=== PATIENT | male | born 1960 | race Caucasian/White ===

== ENCOUNTER 2017-02-13 23:03 | Emergency (ER) | payer SELFPAY ==
[~2017-02-13] VITALS: Ht 167.6 cm; Wt 86.1 kg
[2017-02-13 23:14] VITALS: Ht 167.6 cm; Wt 86.1 kg
--- NOTE | 2017-02-14 01:16 | ERD ---
ER Documentation Chief Complaint Chief Complaint BIBA ; R foot pain HPI The patient is a 56-year-old male, presenting to the ER because of right foot pain because he has been walking and running for 4 days after being chased by the police. He fell, denies headache, neck pain, chest pain, abdominal pain, vomiting, dysuria, diarrhea. He smokes, denies drinking, denies illicit drug Past Medical history: Diabetes mellitus, hypertension, schizophrenia Past surgical history: None ROS All systems reviewed and are negative except as per history of present illness. Medications Home Meds Active Scripts Ibuprofen* (Motrin*) 600 Mg Tab, 600 MG PO Q6, #20 TAB Prov:LAN IQBAL MD 02/14/17 Clindamycin Hcl* (Clindamycin Hcl*) 300 Mg Capsule, 300 MG PO Q6, #40 CAP Prov:LAN IQBAL MD 02/14/17 Physical Exam Vitals Vital Signs Date Time Temp Pulse Resp B/P Pulse Ox O2 Delivery O2 Flow Rate FiO2 02/14/17 01:33 98.1 81 20 126/70 96 Room Air 02/13/17 23:14 98.1 82 20 126/70 96 Physical Exam Const: No acute distress. Head: Atraumatic. Eyes: Normal Conjunctiva. ENT: Normal External Ears, Nose and Mouth. Neck: Full range of motion. No meningismus. Resp: Clear to auscultation bilaterally. Cardio: Regular rate and rhythm. Abd: Soft, non distended, normal bowel sounds, non tender. Skin: No petechiae or rashes. Back: No midline or flank tenderness. Ext: Right plantar forefoot with ruptured blister, mild tenderness at the first rt metatarsophalangeal joint Neur: Awake and alert. No focal deficit Psych: Normal Mood and Affect. Results 24 hrs Laboratory Tests Test 02/14/17 01:39 Bedside Glucose 213mg/dL Current Medications Medications (Trade) Dose Ordered Sig/Elisabeth Route PRN Reason Start Time Stop Time Status Last Admin Dose Admin Clindamycin HCl (Cleocin) 300 mg ONCE ONCE PO 02/14/17 03:30 02/14/17 03:31 Ibuprofen (Motrin) 600 mg ONCE ONCE PO 02/14/17 03:30 02/14/17 03:31 Procedures/[place] [id number] Radiology Main Line: [phone] DIAGNOSTIC IMAGING REPORT Patient: SUNNY WAYNE : 1960 Age: 56 Sex: M MR #: [id number] DOS: 02/14/17 0023 Ordering MD: SINA AGUILAR PA-C Location: E/R Room/Bed: PROCEDURE: XR Foot. CLINICAL INDICATION: Pain. TECHNIQUE: Three views of the right foot. COMPARISON: None available. FINDINGS: No fracture or dislocation is identified. Mild hallux valgus is noted. 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 There is a dorsal calcaneal enthesophyte. There is no significant soft tissue swelling. IMPRESSION: 1. No fracture or dislocation of the right foot. 2. Mild hallux valgus. 3. 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 RPTAT: HTAR .John Nagy MD, MD Date Time Electronically viewed and signed by .John Nagy MD, on 02/14/2017 02:04 .R/ CC: SINA AGUILAR PA-C MEDICAL MAKING DECISION: Descending is a 56-year-old male, presenting with acute right foot cellulitis. He was treated with clindamycin and Motrin The differential diagnoses considered include but are not limited to, cellulitis , abscess, foreign body, fracture, sprain, contusion Departure Diagnosis: Primary Impression: Cellulitis of right foot Condition: Good Comments He was discharged with Motrin and clindamycin I discussed the findings with the patient. I advised the patient to follow-up with the primary physician in about 1-2 days, sooner if needed and return if any concern. Disclaimer: Inadvertent spelling and grammatical errors are likely due to EHR/ dictation software use and do not reflect on the overall quality of patient care. Also, please note that the electronic time recorded on this note does not necessarily reflect the actual time of the patient encounter. LAN IQBAL MD Feb 14, 2017 01:16
--- NOTE | 2017-02-14 01:16 | ERD ---
ER Documentation Chief Complaint Chief Complaint BIBA ; R foot pain HPI The patient is a 56-year-old male, presenting to the ER because of right foot pain because he has been walking and running for 4 days after being chased by the police. He fell, denies headache, neck pain, chest pain, abdominal pain, vomiting, dysuria, diarrhea. He smokes, denies drinking, denies illicit drug Past Medical history: Diabetes mellitus, hypertension, schizophrenia Past surgical history: None ROS All systems reviewed and are negative except as per history of present illness. Medications Home Meds Active Scripts Ibuprofen* (Motrin*) 600 Mg Tab, 600 MG PO Q6, #20 TAB Prov:LAN IQBAL MD 02/14/17 Clindamycin Hcl* (Clindamycin Hcl*) 300 Mg Capsule, 300 MG PO Q6, #40 CAP Prov:LAN IQBAL MD 02/14/17 Physical Exam Vitals Vital Signs Date Time Temp Pulse Resp B/P Pulse Ox O2 Delivery O2 Flow Rate FiO2 02/14/17 01:33 98.1 81 20 126/70 96 Room Air 02/13/17 23:14 98.1 82 20 126/70 96 Physical Exam Const: No acute distress. Head: Atraumatic. Eyes: Normal Conjunctiva. ENT: Normal External Ears, Nose and Mouth. Neck: Full range of motion. No meningismus. Resp: Clear to auscultation bilaterally. Cardio: Regular rate and rhythm. Abd: Soft, non distended, normal bowel sounds, non tender. Skin: No petechiae or rashes. Back: No midline or flank tenderness. Ext: Right plantar forefoot with ruptured blister, mild tenderness at the first rt metatarsophalangeal joint Neur: Awake and alert. No focal deficit Psych: Normal Mood and Affect. Results 24 hrs Laboratory Tests Test 02/14/17 01:39 Bedside Glucose 213mg/dL Current Medications Medications (Trade) Dose Ordered Sig/Elisabeth Route PRN Reason Start Time Stop Time Status Last Admin Dose Admin Clindamycin HCl (Cleocin) 300 mg ONCE ONCE PO 02/14/17 03:30 02/14/17 03:31 Ibuprofen (Motrin) 600 mg ONCE ONCE PO 02/14/17 03:30 02/14/17 03:31 Procedures/[place] [id number] Radiology Main Line: [phone] DIAGNOSTIC IMAGING REPORT Patient: SUNNY WAYNE : 1960 Age: 56 Sex: M MR #: [id number] DOS: 02/14/17 0023 Ordering MD: SINA AGULIAR PA-C Location: E/R Room/Bed: PROCEDURE: XR Foot. CLINICAL INDICATION: Pain. TECHNIQUE: Three views of the right foot. COMPARISON: None available. FINDINGS: No fracture or dislocation is identified. Mild hallux valgus is noted. 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 There is a dorsal calcaneal enthesophyte. There is no significant soft tissue swelling. IMPRESSION: 1. No fracture or dislocation of the right foot. 2. Mild hallux valgus. 3. 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 RPTAT: HTAR .John Nagy MD, MD Date Time Electronically viewed and signed by .John Nagy MD, on 02/14/2017 02:04 .R/ CC: SINA AGUILAR PA-C MEDICAL MAKING DECISION: Descending is a 56-year-old male, presenting with acute right foot cellulitis. He was treated with clindamycin and Motrin The differential diagnoses considered include but are not limited to, cellulitis , abscess, foreign body, fracture, sprain, contusion Departure Diagnosis: Primary Impression: Cellulitis of right foot Condition: Good Comments He was discharged with Motrin and clindamycin I discussed the findings with the patient. I advised the patient to follow-up with the primary physician in about 1-2 days, sooner if needed and return if any concern. Disclaimer: Inadvertent spelling and grammatical errors are likely due to EHR/ dictation software use and do not reflect on the overall quality of patient care. Also, please note that the electronic time recorded on this note does not necessarily reflect the actual time of the patient encounter. LAN IQBAL MD Feb 14, 2017 01:16
--- NOTE | 2017-02-14 02:04 | RADRPT ---
PROCEDURE: XR Foot. CLINICAL INDICATION: Pain. TECHNIQUE: Three views of the right foot. COMPARISON: None available. FINDINGS: No fracture or dislocation is identified. Mild hallux valgus is noted. There is mild to moderate de generative arthrosis of the first MTP joint. There is a dorsal calcaneal enthesophyte. There is no significant soft tissue swelling. IMPRESSION: 1. No fracture or dislocation of the right foot. 2. Mild hallux valgus. 3. 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 RPTAT: HTAR .John Nagy MD, Date Time Electronically viewed and signed by .John Nagy MD, on 02/14/2017 02:04 .R/
[2017-02-14] MEDS ORDERED: CLIN-73 PO (03:04)
[2017-02-14] MEDS ORDERED: IBUP-1542 PO (03:05)
[2017-02-14] MEDS ORDERED: CLINDAMYCIN 300 MG CAP PO ONE (03:30)
[2017-02-14] MEDS ORDERED: IBUPROFEN 600 MG TAB PO ONE (03:30)
[2017-02-14 03:50] VITALS: BP 118/67; PULSE 89; RESP 18; TEMP 97.9
== END 2017-02-14 03:55 | disposition home or self-care (01) ==
LOC: FTE 23:03 → E/R 02-14 03:55
DX: L03.115 Cellulitis of right lower limb (principal); E11.9 Type 2 diabetes mellitus without complications; I10 Essential (primary) hypertension
CPT/HCPCS: 73630; 82962